=== PATIENT | female | born 2000 | race Two or more races ===

== ENCOUNTER 2021-12-31 15:35 | Emergency (ER) | payer OTHER ==
[~2021-12-31] VITALS: Ht 154.9 cm; Wt 74.0 kg
[2021-12-31] MEDS ORDERED: ACETAMINOPHEN 160 MG/5 ML UD CUP PO ONE (16:45)
[2021-12-31] MEDS ORDERED: IBUPROFEN 100MG/5ML UDC PO ONE (16:45)
[2021-12-31] MEDS ORDERED: DEXAMETHASONE 0.5MG/5ML ORAL SYR PO ONE (16:45)
[2021-12-31] MEDS ORDERED: ACETAMINOPHEN 160MG/5ML UDC PO NR (17:15)
[2021-12-31] MEDS ORDERED: TOPUD PO ×3 (17:25→18:21)
[2021-12-31] MEDS ORDERED: IBUP-2028 MT ×3 (17:25→18:21)
[2021-12-31] MEDS ORDERED: DEXAMETHASONE 0.5MG/5ML ORAL SYR PO NR (17:30)
[2021-12-31] MEDS ORDERED: IBUPROFEN 100MG/5ML UDC PO NR (17:30)
[2021-12-31 17:51] VITALS: BP 136/56
[2021-12-31] MEDS ORDERED: DEXAMETHASONE 10 MG/ML VIAL PO NR (18:00)
== END 2021-12-31 18:28 | disposition home or self-care (01) ==
LOC: ER 15:35
DX: J03.90 Acute tonsillitis, unspecified (principal)
CPT/HCPCS: 99284; J1100; J8540